=== PATIENT | female | born 1945 | race Caucasian/White ===

== ENCOUNTER 2017-08-16 22:05 | Inpatient (IN) | payer OTHER, BC ==
[~2017-08-16] VITALS: Ht 154.9 cm; Wt 92.6 kg
[~2017-08-16 22:05] MED LIST: ACID CONTROL150 MG PO; ALBUTEROL SULF8.5 GM IH; ALEVE220 MG PO; ALLEGRA ALLERG180 MG PO; ASPIR 8181 M1 PO; ASPIRIN EC325 MG PO; CENTRUM SILVER1 EAC3 PO; CINNAMON BARK500 MG PO; FISH OIL 1,0001 EAC7 PO; HYDROCODON-ACE1 EAC7 PO; IRON325 M1 PO; LIPITOR20 MG PO; LO-DOSE ASPIRIN81 M1 PO; SENNA-TIME S T1 EACH PO; VITAMIN D-32000 UNI1 PO; VITAMIN D2000 UNIT PO; ZIAC 2.5/6.251 TAB PO; ZIAC 5/6.251 TABLET PO; ZOLOFT50 MG PO
[2017-08-17 10:43] VITALS: BP 166/85
[2017-08-17 13:55] LABS: HEMATOCRIT 38.1 % (36.0-46.0); HEMOGLOBIN 12.4 G/DL (11.9-15.5); MCH 28.6 PG (29.0-34.0); MCHC 32.5 G/DL (30.0-36.0); PLATELET COUNT 204 K/uL (156-360); RBC DIS.WIDTH-CV 13.4 % (11.8-14.6); RBC DIS.WIDTH-SD 43.8 % (39-53); RED BLOOD COUNT 4.33 M/uL (3.80-5.20); WHITE BLOOD COUNT 9.9 K/uL (4.1-10.2)
[2017-08-17 15:26] VITALS: BP 118/64
[2017-08-17 20:22] VITALS: BP 146/65
[2017-08-18 00:15] VITALS: BP 154/70
[2017-08-18 04:04] VITALS: BP 132/60
[2017-08-18 05:02] LABS: CHLORIDE 103 mEq/L (99-109); POTASSIUM 4.1 mEq/L (3.7-5.4); SODIUM 139 mEq/L (136-147)
[2017-08-18 05:03] LABS: GLUCOSE 147 mg/dL (70-99); HEMATOCRIT 33.1 % (36.0-46.0); HEMOGLOBIN 11.3 G/DL (11.9-15.5); MCV 87.8 FL (83-99)
[2017-08-18 05:07] LABS: CREATININE 0.8 mg/dL (0.6-1.3); GFR ESTIMATE (CALCULATED) > 59 mL/min/
[2017-08-18 05:08] LABS: UREA NITROGEN (BUN) 12 mg/dL (9-23)
[2017-08-18 08:19] VITALS: BP 166/70
[2017-08-18 11:44] VITALS: BP 172/76
[2017-08-18 16:06] VITALS: BP 162/67
[2017-08-18 20:16] VITALS: BP 186/77
[2017-08-19 00:23] VITALS: BP 168/74
[2017-08-19 04:23] VITALS: BP 167/72
[2017-08-19 05:43] LABS: HEMATOCRIT 28.1 % (36.0-46.0); MCV 88.1 FL (83-99)
[2017-08-19 05:44] LABS: HEMOGLOBIN 9.3 G/DL (11.9-15.5)
[2017-08-19 08:00] VITALS: BP 146/65
[2017-08-19] MEDS ORDERED: SENNA PLUS TAB1 EACH PO (08:09)
[2017-08-19] MEDS ORDERED: LOVENOX40 MG/0.4 SC (08:10)
[2017-08-19] MEDS ORDERED: ENDOCET 5-3251 EACH PO (08:10)
[2017-08-19 12:00] VITALS: BP 153/64
== END 2017-08-19 15:50 | DRG 470 ==
LOC: ENRESERV 22:05 → 2SOUTH 08-17 09:49 → ENRESERVTM 08-17 15:15 → ENRESERVDT 08-17 15:15 → 3WEST 08-17 15:15 → 2SOUTH 08-17 15:48 → 3WEST 08-19 15:50
PROVIDERS: Orthopaedic Surgery
PROC: 0SRC0J9 Replacement of Right Knee Joint with Synthetic Substitute, Cemented, Open Approach (ICD-10-PCS; principal; 2017-08-17)
DX: M17.11 Unilateral primary osteoarthritis, right knee (principal); I10 Essential (primary) hypertension; E78.00 Pure hypercholesterolemia, unspecified; K21.9 Gastro-esophageal reflux disease without esophagitis; F32.9 Major depressive disorder, single episode, unspecified; Z90.710 Acquired absence of both cervix and uterus; Z96.652 Presence of left artificial knee joint
CPT/HCPCS: 73560; 80048; 85014; 85018; 85027; 99202; C1713; J0131; J0690; J1100; J1650; J1885; J2250; J2405; J2795; J3010; J7050